=== PATIENT | female | born 1990 | race Caucasian/White ===

== ENCOUNTER 2019-07-02 11:11 | Outpatient (CLI) | payer MEDICAID, SELFPAY ==
--- NOTE | ~2019-07-02 | US_ITS ---
US breast LT limited 07/02/2019 12:02 Indication: Lump left axillary tail. Procedure: High-resolution ultrasound of the left axilla in the area of palpable concern Comparison: No prior studies for comparison. Findings: Small heterogeneous echotexture without focal solid or cystic mass. Impression: 1: Normal limited ultrasound of the left axilla. BI-RADS CATEGORY 1 - NEGATIVE Reviewed, dictated and finalized at location A. Impression: 1: Normal limited ultrasound of the left axilla. BI-RADS CATEGORY 1 - NEGATIVE
== END 2019-07-02 11:12 | disposition home or self-care (01) ==
LOC: ANHIMG 11:37
PROVIDERS: Visit Provider Obstetrics & Gynecology
DX: N63.32 Unspecified lump in axillary tail of the left breast (principal)
CPT/HCPCS: 76642

== ENCOUNTER 2019-09-21 10:57 | Outpatient (CLI) | payer OTHER, SELFPAY ==
[2019-09-21 12:45] LABS: Hematocrit 40.4 % (37.0-47.0); Hemoglobin 13.4 g/dL (12.0-15.0); Mean Corpuscular HGB Conc 33.2 g/dl (32-36); Mean Corpuscular Hemoglobin 30.6 pg (26-34); Mean Corpuscular Volume 92.2 fl (80-100); Mean Platelet Volume 10.3 fl (7.4-10.4); Platelet Count Result 239 k/mm3 (150-375); Red Blood Count 4.38 M/mm3 (4.2-5.4); Red Cell Distribution Width 16.3 % (11.5-14.5); White Blood Count 10.5 K/mm3 (4.5-10.0)
[2019-09-23 12:21] LABS: Rapid Plasma Reagin Non-Reactive (NonReactive)
== END 2019-09-21 10:58 | disposition home or self-care (01) ==
PROVIDERS: Visit Provider Obstetrics & Gynecology
DX: Z34.93 Encounter for supervision of normal pregnancy, unspecified, third trimester (principal); Z3A.00 Weeks of gestation of pregnancy not specified
CPT/HCPCS: 36415; 85027; 86592; 86850; 86900; 86901

== ENCOUNTER 2019-09-23 06:55 | Inpatient (IN) | payer OTHER, SELFPAY ==
--- NOTE | 2019-08-28 15:09 | PC.NURSE ---
VERIFIED WITH OR SCHEDULE AND PATIENT--C/S ON 09/23/19 AT 0900 PATIENT GIVEN REQUISITION FOR PRE-OP LAB DRAW ON 09/21/2019
[2019-09-23] VITALS (62 sets, daily range): BP systolic 102–134; BP diastolic 63–103; PULSE 58–122; RESP 12–18; TEMP 36.2–36.8; O2SAT 94–100; BMI 42.5
[2019-09-23] MEDS: LACTATED RINGERS 1,000 ML 999 ML IV CONT (07:35)
--- NOTE | 2019-09-23 07:44 | LDADM ---
This patient, Anette Saenz, was admitted to Labor/Delivery/Recovery 120 on 09/23/19 at 06:55. Plans for labor, pain management and were discussed with patient. Patient/family oriented to hospital policies and general routines including ID bracelet, bed and alarms, visiting hours, pain management, procedures, bathroom and other care routines, personal items, smoking policy, room service/diet and guest tray routines, infant security routines, and visiting hours. Patient/Family are encouraged to report perceived risks to care and to ask questions if they do not understand what they are told or what they should do. See OBIX for further documentation.
--- NOTE | 2019-09-23 08:11 | WPDANESEPPF ---
Anes - Initial Pre Proc Eval Procedure: Operation Date: 09/23/19 09:00 Proposed Procedures p Repeat Section - Margarito Hernandez MD Date/Time: 09/23/19 08:11 Surgeon: Margarito Hernandez MD Pre Op Diagnosis: Repeat C/S Patient Data Age: 29 Gender: F Height: 1.7 m Weight: 123 kg Last Vital Signs Pulse 85 09/23/19 08:01 BP 126/67 09/23/19 08:01 Allergies Allergy/AdvReac Type Severity Reaction Status Date / Time No Known Allergies Allergy Verified 08/28/19 14:52 Home Medications Medication Instructions Recorded Confirmed Type Humulin N NPH U-100 Insulin 15 units SUBMUCOSAL INJ HS 08/28/19 08/28/19 History glyburide 5 mg PO BID 08/28/19 08/28/19 History Patient hx anesthesia problems: none Family hx anesthesia problems: none PMFSH Past Medical History Medical History (Updated 09/23/19 @ 08:12 by Henrry Cope MD) Anxiety Bipolar 1 disorder Depression Diabetes in Surgical History Surgical History (Updated 09/23/19 @ 08:12 by Henrry Cope MD) Hx of section Family History Family History (Updated 08/28/19 @ 14:58 by Jatin Burroughs RN) Mother Hypertension Social History Social History Smoking status: Current every day smoker Tobacco type: cigarettes Substance use: never Spiritual care concerns: No Anes - Eval Final PreProcedure Day of Procedure 09/23/19 08:11 Patient weight: obese Heart: regular rate and rhythm Lungs: clear to auscultation and normal air movement Airway: Mallampati scale class II Neurological: alert and oriented Last oral intake: >/= 8 hours ASA classification: III Emergent: no Anesthetic plan: proceed Anesthesia type and monitoring: regional spinal Informed Consent: The patient's anesthetic plan and its attendant risks and benefits were discussed with the patient/family/POA. Questions were solicited and answers provided to the satisfaction of the patient/family/POA.
[2019-09-23] MEDS: LACTATED RINGERS 1,000 ML 125 ML IV CONT (08:19)
--- NOTE | 2019-09-23 08:54 | PM.IMHP ---
H&P: HPI History of Present Illness Date/Time: 09/23/19 08:54 Chief complaint: Repeat C/S Narrative: Anette Saenz is a 29 year old female , multiparous, who presents at 39 weeks gestation for repeat delivery. She had a previous delivery for failure to progress. She has no complaints. She is anxious. She denies any loss of fluid, vaginal bleeding, contractions. She denies any chest pain, shortness of breath. She denies any nausea, vomiting, fever, chills. Her for was complicated by gestational diabetes. She is a smoker. She has history of depression anxiety. Review of Systems Constitutional: Constitutional: Reports no additional constitutional complaints, Denies fatigue, Denies headache(s), Denies lethargy and Denies weakness Eyes: Eyes: Reports no additional eye complaints, Denies blurry vision and Denies photophobia ENT: Reports as per HPI, Denies headache(s) and Denies neck pain Cardiovascular: Cardiovascular: Denies chest pain, Denies diaphoresis, Denies leg edema, Denies palpitations and Denies dyspnea Respiratory: Respiratory: Denies hemoptysis, Denies dyspnea and Denies wheezing Gastrointestinal: Gastrointestinal: Denies abdominal pain, Denies melena, Denies bloating, Denies hematochezia, Denies nausea and Denies vomiting Genitourinary: Genitourinary: Reports no additional female genitourinary complaints Musculoskeletal: Musculoskeletal: Denies joint swelling, Denies neck pain, Denies numbness and Denies stiffness Neurologic: Denies Abnormal speech present, Denies confusion, Denies headache(s), Denies numbness and Denies weakness Psychiatric: Psychiatric: Denies anxiety, Denies confusion, Denies depression, Denies homicidal ideation and Denies suicidal ideation Endocrine: Endocrine: Denies fatigue and Denies palpitations Allergic/Immunologic: Allergic/Immunologic: Denies wheezing PMFSH Past Medical History Medical History (Updated 09/23/19 @ 08:12 by Henrry Cope MD) Anxiety Bipolar 1 disorder Depression Diabetes in Surgical History Surgical History (Updated 09/23/19 @ 08:12 by Henrry Cope MD) Hx of section Family History Family History (Updated 08/28/19 @ 14:58 by Jatin Burroughs RN) Mother Hypertension Social History Social History Smoking status: Current every day smoker Tobacco type: cigarettes Substance use: never Spiritual care concerns: No Meds Home Medications and Allergies Home Medications Medication Instructions Recorded Confirmed Type Humulin N NPH U-100 Insulin 15 units SUBMUCOSAL INJ HS 08/28/19 08/28/19 History glyburide 5 mg PO BID 08/28/19 08/28/19 History Allergies Allergy/AdvReac Type Severity Reaction Status Date / Time No Known Allergies Allergy Verified 08/28/19 14:52 Vital Signs Vital Signs - 24 hr 09/23/19 07:18 09/23/19 07:46 09/23/19 08:01 Pulse Rate 100 92 85 Blood Pressure 118/72 125/79 126/67 09/23/19 08:16 09/23/19 08:22 09/23/19 08:31 Pulse Rate 85 92 86 Blood Pressure 118/72 126/73 124/69 Exam Const: General: healthy appearing, comfortable and no acute distress; No confusion Orientation/consciousness: No confusion Eyes: Direct Ophthalmoscopy: No photophobia Resp: Auscultation: clear to auscultation bilaterally, no rales, no rhonchi and no wheezes Cardio: Rate: regular rate Heart sounds: no click, no murmurs and no rubs GI: Inspection: non-distended GI Palp: No abdominal tenderness Auscultation: normal bowel sounds Neuro: General: No confusion Speech: No Abnormal speech present Extrem: General: normal to inspection, no pedal edema and no calf tenderness Assessment and Plan Assessment and plan (1) Bipolar 1 disorder: Code(s): F31.9 - Bipolar disorder, unspecified Status: Acute (2) Anxiety: Code(s): F41.9 - Anxiety disorder, unspecified Status: Acute (3) Hx of section: Code(s): Z98
--- NOTE | 2019-09-23 09:57 | P.OP_ITS ---
Procedure Note - Detailed Date of procedure: 09/23/19 Pre-op diagnosis: Repeat C/S term gestation, previous LTCS Post-op diagnosis: same Procedure performed: Repeat low-transverse delivery Description of procedure: The patient was taken the operating room. She was prepped and draped in the dorsal supine position with leftward tilt after induction of spinal anesthetic. When anesthesia was found to be adequate a low- transverse skin incision was made and carried down to the level the fascia with the knife. The fascial incision was made at the midline with a scalpel. The fascial incision was extended laterally with Munson scissors. The fascia was tented upward superior and inferior with Radha clamps. The rectus muscles were dissected off bluntly. The rectus muscles at the midline. The p reperitoneal fat was dissected bluntly at the superior aspect of the separate the rectus muscles. The peritoneal cavity was entered bluntly in the same area. The peritoneal incision was extended superior and inferior with good position of bladder. Bladder blade was inserted. A low-transverse incision was made on the uterus with the scalpel. It was carried down the level of the amniotic cavity with a knife. The amniotic cavity bluntly. The uterine incision was made laterally with blunt traction. The infant was delivered. The cord was clamped and cut. The infant was handed off to waiting pediatric staff. Cord bloods were obtained. The placenta was removed manually. The uterus was exteriorized. Uterus cleared of all clots and debris. Uterus closed in 0 Vicryl in a running locked fashion. An imbricating layer of 0 Vicryl was also placed on the to bolster the closure. The uterus was returned to the abdomen. The gutters were cleared of all clots and debris. The fascia was closed 0 Vicryl in a running fashion. Subcutaneous tissue was irrigated and bleeding areas were cauterized. The skin was closed with subcuticular absorbable key. The incision was covered with derma donaldson. The patient tolerated the procedure well. She was taken recovery room stable condition. Sponge, lap, needle counts were correct x2. Anesthesia: spinal Surgeon: Margarito Hernandez MD Estimated blood loss (mL): 710 Drains: No Packing: No Pathology: none sent Complications: No immediate complications Condition: stable Disposition: floor Findings: Normal maternal anatomy. Average size infant with normal Apgars.
[2019-09-23] MEDS: OXYTOCIN 30 UNITS/NS 500 ML 30 UNITS/500 ML BAG 125 UNITS IV CONT (10:40)
--- NOTE | 2019-09-23 11:51 | PC.NURSE ---
Patient transferred to post room #292 per stretcher from labor and delivery. Support person present. Oriented to unit, room, information board, rooming in, admission packet and security measures. Patient verbalizes understanding.
[2019-09-23] MEDS: DEXTROSE 5%/0.45% SOD CHL 1,000 ML 125 ML IV CONT (15:13)
[2019-09-23] MEDS: KETOROLAC 30 MG/ML VIAL (*BKC) IV PUSH ×2 (15:24→20:59)
[2019-09-23] MEDS: SIMETHICONE 80 MG TAB.CHEW PO ×2 (18:59→22:38)
[2019-09-24] MEDS: KETOROLAC 30 MG/ML VIAL (*BKC) IV PUSH (04:59)
[2019-09-24 05:10] VITALS: BP 106/65; PULSE 84; RESP 18; TEMP 37
[2019-09-24 05:42] LABS: Basophils Absolute Auto 0.1 K/mm3 (0.0-0.1); Basophils Percent Auto 0.6 % (0.2-1.2); Eosinophils Absolute Auto 0.3 K/mm3 (0-0.3); Eosinophils Percent Auto 3.2 % (0-4.4); Hematocrit 33.7 % (37.0-47.0); Immature Granulocyte Absolute 0.05 K/mm3 (0.00-0.031); Immature Granulocyte Percent A 0.6 % (0-0.5); Lymphocytes Absolute Auto 1.79 K/mm3 (0.9-3.2); Lymphocytes Percent Auto 22.7 % (18.3-44.2); Mean Corpuscular HGB Conc 32.6 g/dl (32-36); Mean Corpuscular Hemoglobin 30.5 pg (26-34); Mean Corpuscular Volume 93.4 fl (80-100); Mean Platelet Volume 9.9 fl (7.4-10.4); Monocytes Absolute Auto 0.7 K/mm3 (0.1-0.6); Monocytes Percent Auto 9.3 % (2.6-8.5); Neutrophils Percent Auto 63.6 % (45.5-73.1); Platelet Count Result 179 k/mm3 (150-375); Red Blood Count 3.61 M/mm3 (4.2-5.4); White Blood Count 7.9 K/mm3 (4.5-10.0)
--- NOTE | 2019-09-24 07:54 | WPDANLDPN2 ---
Anes-Prog Note L&D Date/Time: 09/24/19 07:54 Comfortable throughout: section Neuraxial method: spinal Epidural/Spinal procedure site: clean & non-tender Neuro status: Neuro function grossly intact. Cardiovascular status: normal Respiratory status: normal Airway patency: baseline Mental status: baseline Post-Op hydration status: normal Vital Signs: Last Vital Signs Temp 37.0 C 09/24/19 05:10 Pulse 84 09/24/19 05:10 Resp 18 09/24/19 05:10 BP 106/65 09/24/19 05:10 Pulse Ox 100 09/23/19 23:15 I/O: Intake & Output 09/23/19 09/23/19 09/24/19 15:59 23:59 07:59 Intake Total 1000 250 300 Output Total 583 512 0624 Balance 5 -550 -1000 Post-procedural complaints: none Patient feedback: Patient satisfied with anesthetic care.
--- NOTE | 2019-09-24 07:55 | WPDANLDNPN2 ---
Anes-Prog Note L&D-Neuraxial Date/Time: 09/24/19 07:55 Neuraxial medications: intrathecal PF morphine Opiod-related complaints: none Patient feedback: Patient satisfied with post-operative pain management.
--- NOTE | 2019-09-24 08:23 | P.PNOB_ITS ---
OB - PN: Subj Subjective Date/time seen: 09/24/19 08:23 Patient comments: no complaints, pain well controlled, tolerating diet and flatus present OB - PN: Obj Data Labs CBC & Chem 7: 09/24/19 04:58 Labs: Laboratory Results - last 24 hr 09/24/19 04:58 WBC 7.9 RBC 3.61 L Hgb 11.0 L Hct 33.7 L MCV 93.4 MCH 30.5 MCHC 32.6 RDW 16.0 H Plt Count 179 MPV 9.9 Immature Gran % (Auto) 0.6 H Neut % (Auto) 63.6 Lymph % (Auto) 22.7 [place] % (Auto) 9.3 H Eos % (Auto) 3.2 Baso % (Auto) 0.6 Lymph # (Auto) 1.79 [place] # (Auto) 0.7 H Eos # (Auto) 0.3 Baso # (Auto) 0.1 Abs Immat Gran (auto) 0.05 H Absolute Neuts (auto) 5.0 Absolute Nucleated RBC 0.0 Nucleated RBC % 0.0 OB - PN A/P Plan day: 1 Comments: Post Op LTCS - no problems, routine recovery Time Spent With Patient Time: Total time spent is greater than 50% in coordination of care (as documented) at patient's floor/unit and/or counseling patient: Exam Const: General: cooperative, healthy appearing, comfortable and no acute distress Resp: Auscultation: no crackles, no rales, no rhonchi and no wheezes Cardio: Rhythm: regular rhythm Heart sounds: no click and no murmurs GI: Inspection: non-distended Auscultation: normal bowel sounds Extrem: General: normal to inspection, no pedal edema and no calf tenderness
[2019-09-24 08:55] VITALS: BP 124/72; PULSE 86; RESP 18; TEMP 36.3; O2SAT 100
[2019-09-24] MEDS: IBUPROFEN 600 MG TABLET PO ×2 (11:59→18:58)
[2019-09-24] MEDS: SIMETHICONE 80 MG TAB.CHEW PO (15:10)
[2019-09-24] MEDS: DOCUSATE SODIUM 100 MG CAPSULE PO (18:58)
[2019-09-24 19:01] VITALS: BP 104/70; PULSE 83; RESP 15; TEMP 36.8; O2SAT 100
--- NOTE | 2019-09-24 19:15 | PC.NURSE ---
PT was sleeping when this RN entered room. Did vitals on pt and asked if anything was needed. Pt stated nothing was needed at this time. Pt did state that she had missed the cutoff for dinner so if she wanted something to eat she would send her significant other out to get something.
[2019-09-25] MEDS: IBUPROFEN 600 MG TABLET PO (05:14)
[2019-09-25 07:35] VITALS: BP 122/76; PULSE 97; RESP 18; TEMP 36.2; O2SAT 100
--- NOTE | 2019-09-25 08:14 | PM.OBPNVD ---
OB - PN: Subj Subjective Date/time seen: 09/25/19 08:14 OB - PN: Obj Data Labs CBC & Chem 7: 09/24/19 04:58 OB - PN A/P Plan day: 2 Plan: routine care and discharge home Comments: Follow up in 1 week. Time Spent With Patient Time: Total time spent is greater than 50% in coordination of care (as documented) at patient's floor/unit and/or counseling patient: Review of Systems Review of Systems: All systems reviewed & are unremarkable except as noted in HPI and below Exam Narrative: Exam Narrative: Fundus firm and vaginal flow controlled. Negative homans. No redness, warmth, or tenderness of lower ext. Const: General: comfortable Resp: Effort & Inspection: normal respiratory effort Psych: Appearance: grossly normal Affect: normal affect Attitude: cooperative Judgement: Good judgement present (Psych)
[2019-09-25] MEDS: DOCUSATE SODIUM 100 MG CAPSULE PO (09:44)
[2019-09-27 10:55] VITALS: BP 121/83; PULSE 81; RESP 20; TEMP 36.9; O2SAT 100
--- NOTE | 2019-10-06 20:39 | PM.OBDSVD ---
DS: Admitting Diagnosis Admitting Diagnosis Admitting Diagnosis: Repeat C/S DS: Discharge Diagnosis Discharge Diagnosis (1) Hx of section: Code(s): Z98.891 - History of uterine scar from previous surgery Status: Acute (2) Bipolar 1 disorder: Code(s): F31.9 - Bipolar disorder, unspecified Status: Acute (3) Anxiety: Code(s): F41.9 - Anxiety disorder, unspecified Status: Acute (4) Diabetes in : Code(s): O24.919 - Unspecified diabetes mellitus in , unspecified trimester Status: Acute OB - DS: Summary OB Procedures : None OB Procedures Intrapartum: OB Procedures: : None Peripartum Data Procedures: Procedures Operation Date: 09/23/19 09:00 Actual Procedures Side Surgeon p Repeat Section Margarito Hernandez MD Time Spent with Patient Time attestation: Total time spent providing and/or coordinating discharge services: DS: Data Data Completed and Pending Completed studies during hospitalization: Pending at discharge 09/23/19 09:26 Surgical [PTH] Routine Discharge Plan Discharge Attending physician on discharge: Margarito Hernandez Consulting providers: Henrry Cope ; Cyndi Aleman Discharging Clinician: Cyndi Aleman Patient Disposition: Home, Self-Care Activity: pelvic rest Diet: as tolerated Discharge Instructions: Education: Mom and Baby Guide Given to: Patient Follow-Up: Call your delivering provider's office for an appointment to be seen in: 1 and 6 weeks Mom and baby should come to the [facility] for the follow-up appointment. Appointment Date/Time: Monday09/27/2019 at 11:00 am Call [phone] if you are unable to keep your appointment time. BREAST CARE: * Wear a snug supportive bra. * For engorgement discomfort: Bottle Feeding: * May apply ice packs ABDOMINAL INCISION: (if applicable) * Allow incision to air dry * Do NOT use lotions for powders on your incision * When showering, allow soap and water to run over the incision, but do not wash incision PERINEAL CARE: * Until bleeding stops, use your wicho bottle after urinating * Change your pad frequently throughout the day * Do NOT bathe in the water * No tub baths until seen by your physician - You may shower ACTIVITY: * Rest as much as possible. * Do not exercise or lift anything heavier than your baby (such as laundry or other children.) * Avoid stairs or driving as much as possible. * Do not put anything into the vagina. No douching, tampons, or sexual activity until seen by physician. NOTIFY PHYSICIAN IF YOU HAVE ANY QUESTIONS OR IF ANY OF THE FOLLOWING SYMPTOMS OCCUR: * If your episiotomy or incision becomes red, swollen, or more painful than what you have experienced in the hospital. * If your vaginal bleeding becomes foul smelling. * If your vaginal bleeding becomes more heavy than a period or if your bleeding changes from pink to bright red. However, you may pass an occasional walnut-sized clot once or twice for the first week . * If you experience a sharp, shooting pain in you calves. * If you discover a hard, reddened area on your breast or if you experience flu-like symptoms. DIET: * Eat regular, well-balanced meals. * Drink plenty of fluids daily. If , drink to thirst. Follow-up/Referrals: Margarito Hernandez MD [Physician] - Discharge Medications: New ibuprofen 600 mg Tablet 600 mg PO Q6H PRN (Reason: Cramping) Qty: 20 RF: 0 hydrocodone-acetaminophen 5-325 mg Tablet 1 tab PO Q3H PRN (Reason: Moderate Pain (4-6)) Qty: 10 RF: 0 Continued Valtrex 500 mg BYMOUTH DAILY RF: 0 Discontinued glyburide 5 mg Tablet 5 mg PO BID RF: 0 Humulin N NPH U-100 Insulin 15 units Submucosal Inj HS RF: 0 Date of admission: 09/23/19 06:55 Primary Care Provider: PHYSICIAN,MOLD FINISHER
== END 2019-09-25 11:34 | disposition home or self-care (01) | DRG 540 ==
LOC: ANHLDR 07:01 → ANHOB2 11:59
PROVIDERS: Admitting Provider Obstetrics & Gynecology; Visit Provider Obstetrics & Gynecology
PROC: 10D00Z1 Extraction of Products of Conception, Low, Open Approach (ICD-10-PCS; CPT 59514; principal; 2019-09-23 09:00)
DX: O34.211 Maternal care for low transverse scar from previous cesarean delivery (principal); Z37.0 Single live birth; Z3A.39 39 weeks gestation of pregnancy; O99.214 Obesity complicating childbirth; E66.9 Obesity, unspecified; O99.344 Other mental disorders complicating childbirth; F31.9 Bipolar disorder, unspecified; F41.9 Anxiety disorder, unspecified; O99.334 Smoking (tobacco) complicating childbirth; F17.210 Nicotine dependence, cigarettes, uncomplicated; O24.429 Gestational diabetes mellitus in childbirth, unspecified control
CPT/HCPCS: 36415; 85025; 88307; A9270; J0131; J1170; J1200; J1885; J2274; J2405; J2590; J3010; J7120

== ENCOUNTER → 2020-06-08 08:51 | Outpatient (CLI) | payer BC, SELFPAY ==
--- NOTE | ~2020-06-08 | MMUS_ITS ---
EXAMINATION: MM diagnostic radha BI w grabiel, US breast LT limited HISTORY: Palpable left breast/axillary lump. TECHNIQUE: Additional 3-D tomosynthesis images of the breasts were performed and synthetic 2-D images were generated. CAD analysis was submitted and interpreted. High resolution Limited left breast ultr asound was performed. COMPARISON: Ultrasound dated 07/02/2019 BREAST PARENCHYMAL COMPOSITION: Breast composed of scattered areas of fibroglandular density. FINDINGS: MAMMOGRAPHIC FINDINGS: There are no suspicious masses, calcifications or architectural distortion in either breast to sugges t malignancy. There are benign-appearing symmetric bilateral axillary lymph nodes with normal fatty h ilum. ULTRASOUND: Limited left breast/axillary ultrasound in the area of palpable concern: Normal heterogeneous echotex ture without focal solid or cystic mass. IMPRESSION: 1. No evidence for malignancy in either breast. 2. Recommend follow-up clinical management for palpable breast abnormality. BI-RADS Category 1: Negative Reviewed, dictated and finalized at location A. IMPRESSION: 1. No evidence for malignancy in either breast. 2. Recommend follow-up clinical management for palpable breast abnormality. BI-RADS Category 1: Negative
== END ==
PROVIDERS: Visit Provider Nurse Practitioner Women's Health
DX: N63.32 Unspecified lump in axillary tail of the left breast (principal); N64.4 Mastodynia
CPT/HCPCS: 76642; 77062; 77066; G0279

== ENCOUNTER 2020-10-26 07:27 | Emergency (ER) | payer BC, SELFPAY ==
--- NOTE | ~2020-10-26 | XR_ITS ---
EXAMINATION: XR lumbar spine 2-3V EXAM DATE: 10/26/2020 07:51 INDICATION: Back pain, numbness down both legs. TECHNIQUE: Lumber spine frontal, lateral, lateral L5-S1 projections for interpretation. There is no prior study for comparison. FINDINGS: Moderate loss of the L4-5 and L5-S1 disc height. The vertebral body and disc heights are o therwise well maintained. The vertebral bodies are aligned in the AP dimension. There are no acute fractures identified. There is mild lumbar facet arthropathy. Paraspinal soft tissue is unremarkable . IMPRESSION: Moderate lower lumbar disc disease. Mild facet arthropathy. Reviewed, dictated and finalized at location B.
[2020-10-26 07:32] VITALS: BP 140/86; PULSE 64; RESP 16; TEMP 36.3; O2SAT 99
--- NOTE | 2020-10-26 07:43 | ED.BACK ---
HPI - Back Pain/Injury General Chief Complaint: Back Pain/Injury Stated Complaint: Back Pain Time Seen by Provider: 10/26/20 07:31 History of Present Illness HPI Narrative: Patient is a 30-year-old female who presents ER with low back pain. Ongoing for the last 3 days. Worsened after going hiking and camping. She took 800 mg ibuprofen x1 yesterday without relief of pain. Feels like pain is increasing today. Worse with walking and bending over. No focal numbness or weakness. Denies loss of bladder/bowel function. No new fevers or chills. No new rash. Related Data Home Medications Medication Instructions Recorded Confirmed Valtrex 500 mg BYMOUTH DAILY 09/23/19 09/23/19 Allergies Allergy/AdvReac Type Severity Reaction Status Date / Time No Known Allergies Allergy Verified 08/28/19 14:52 Review of Systems Review of Systems: All systems reviewed & are unremarkable except as noted in HPI and below Constitutional: Constitutional: Denies chills, Denies fever(s) and Denies weakness Gastrointestinal: Gastrointestinal: Denies abdominal pain, Denies nausea and Denies vomiting Musculoskeletal: Musculoskeletal: Reports back pain, Denies arthralgias, Denies joint swelling and Reports muscle cramps Neurologic: Denies headache(s), Denies focal weakness and Denies numbness PMFSH Past Medical History Medical History (Updated 10/26/20 @ 09:32 by Erik George MD) Anxiety Bipolar 1 disorder Depression Diabetes in Surgical History Surgical History (Updated 09/23/19 @ 08:12 by Henrry Cope MD) Hx of section Family History Family History (Updated 08/28/19 @ 14:58 by Jatin Burroughs RN) Mother Hypertension Social History Social History Smoking status: Current every day smoker Tobacco type: cigarettes Substance use: never Spiritual care concerns: No Exam Narrative: GENERAL: Well-appearing, well-nourished, and in no acute distress. HEAD: Normocephalic, atraumatic. CHEST: Clear to auscultation. No respiratory distress. HEART: Regular rate and rhythm. Normal peripheral pulses. ABDOMEN: Soft, nontender, nondistended. Back: Mild midline tenderness at L4. No additional midline tenderness to thoracic or L-spine. Bilateral paraspinal muscular tenderness in lower lumbar region. EXTREMITIES: Normal range of motion. 5/5 strength bilateral lower extremities. No lower extremity edema. SKIN: Warm, dry, no rash. Linear superficial burn right axilla without infection and superficial scabbing occurring. No longer than 2 cm. NEURO: Alert and oriented x3. PSYCH: Normal mood and affect. Course Course Emergency Course: Back pain improving with Toradol and Valium discussed imaging findings. Discussed treatment plan. Discharge home. Vital Signs Vital signs: Vital Signs Temperature 97.4 F L 10/26/20 07:32 Pulse Rate 64 10/26/20 07:32 Respiratory Rate 16 10/26/20 07:32 Blood Pressure 140/86 10/26/20 07:32 Pulse Oximetry 99 10/26/20 07:32 Temperature 97.4 F L 10/26/20 07:32 Pulse Rate 64 10/26/20 07:32 Respiratory Rate 16 10/26/20 07:32 Blood Pressure 140/86 10/26/20 07:32 Pulse Oximetry 99 10/26/20 07:32 MDM - Back Pain/Injury Imaging Data Radiologist's impression: ITS Impressions Lumbar Spine X-Ray 10/26/20 08:40 IMPRESSION: Moderate lower lumbar disc disease. Mild facet arthropathy. Discharge Plan Discharge Clinical Impression: Lumbar paraspinal muscle spasm Patient Disposition: Home, Self-Care Condition: Stable Instructions: Muscle Spasm (ED) Additional Instructions: Return to the ER if you have increased pain in your back, you develop lower extremity weakness/numbness/paralysis, you have numbness or tingling in your private parts, or you are unable to control your ability to urinate/stool. Prescriptions: New cyclobenzaprine 10 mg tablet 10 mg PO TID PRN (Reason: muscle spasm) Qty: 20 RF:
[2020-10-26] MEDS: KETOROLAC (*BKC) 60 MG/2 ML VIAL IM (08:08)
[2020-10-26] MEDS: diazePAM (*CRX) 2 MG TABLET PO (08:08)
[2020-10-26 09:43] VITALS: BP 109/79; PULSE 72; RESP 14; O2SAT 99
== END 2020-10-26 09:44 | disposition home or self-care (01) ==
PROVIDERS: Emergency Provider Emergency Medicine; PCP Nurse Practitioner Family
DX: M62.830 Muscle spasm of back (principal); F17.210 Nicotine dependence, cigarettes, uncomplicated; M51.9 Unspecified thoracic, thoracolumbar and lumbosacral intervertebral disc disorder
CPT/HCPCS: 72100; 96372; 99283; A9270; J1885

== ENCOUNTER 2022-07-19 07:49 | Emergency (ER) | payer OTHER, SELFPAY ==
[2022-07-19] VITALS (15 sets, daily range): BP systolic 117–149; BP diastolic 82–92; PULSE 66–111; RESP 10–22; TEMP 36.2; O2SAT 97–100
--- NOTE | 2022-07-19 07:53 | ECG_ITS ---
Measurements Intervals [place] Rate: 99 P: 23 [place]: 153 QRS: 59 QRSD: 98 T: 29 QT: 351 QTc: 452 Interpretive Statements SINUS RHYTHM NO PREVIOUS ECG AVAILABLE FOR COMPARISON Electronically Signed On 07-19-2022 14:57:07 CDT by Davey Estrada M.D.
[2022-07-19 08:37] LABS: Basophils Absolute Auto 0.1 K/mm3 (0.0-0.1); Basophils Percent Auto 0.7 % (0.2-1.2); Eosinophils Absolute Auto 0.4 K/mm3 (0-0.3); Eosinophils Percent Auto 5.1 % (0-4.4); Hematocrit 45.8 % (37.0-47.0); Hemoglobin 15.7 g/dL (12.0-15.0); Immature Granulocyte Absolute 0.04 K/mm3 (0.00-0.031); Immature Granulocyte Percent A 0.6 % (0-0.5); Lymphocytes Absolute Auto 1.65 K/mm3 (0.9-3.2); Lymphocytes Percent Auto 23.9 % (18.3-44.2); Mean Corpuscular HGB Conc 34.3 g/dl (32-36); Mean Corpuscular Hemoglobin 30.6 pg (26-34); Mean Corpuscular Volume 89.3 fl (80-100); Mean Platelet Volume 9.2 fl (7.4-10.4); Monocytes Absolute Auto 0.4 K/mm3 (0.1-0.6); Monocytes Percent Auto 6.4 % (2.6-8.5); Neutrophils Absolute Auto 4.4 K/mm3 (1.3-6.7); Neutrophils Percent Auto 63.3 % (45.5-73.1); Platelet Count Result 217 k/mm3 (150-375); Red Blood Count 5.13 M/mm3 (4.2-5.4); Red Cell Distribution Width 13.2 % (11.5-14.5); White Blood Count 6.9 K/mm3 (4.5-10.0)
[2022-07-19 08:51] LABS: Alanine Aminotransferase 23 U/L (6-35); Albumin Level 4.3 g/dL (3.5-5.1); Alkaline Phosphatase 51 U/L (38-126); Anion Gap 8 mmol/L (8-16); Aspartate Amino Transferase 25 U/L (14-36); Bilirubin,Total 0.4 mg/dL (0.2-1.3); Blood Urea Nitrogen 15 mg/dL (7-17); Calcium 8.6 mg/dL (8.4-10.2); Carbon Dioxide 24 mmol/L (22-30); Chloride 106 mmol/L (98-107); Estimated CRCL calculation 153 ml/min; Estimated Glomerular Filt Rate > 60; Glucose 105 mg/dL (65-110); Sodium 138 mmol/L (137-145)
[2022-07-19 09:03] LABS: Troponin I < 0.012 ng/mL (0.000-0.034)
--- NOTE | 2022-07-19 09:58 | ED.ARRPALP ---
HPI - Arrhythmia/Palpitations General Chief Complaint: Arrhythmia/Palpitations Stated Complaint: palpitations since last night Time Seen by Provider: 07/19/22 07:54 History of Present Illness HPI narrative: Patient with h/o anxiety, depression, p/w palpitations. She has been feeling them on and off for a week, she has been off of her antidepressants due to insurance issues for a month; no severe chest pain, shortness of breath, does not feel well Related Data Home Medications Medication Instructions Recorded Confirmed Valtrex 500 mg BYMOUTH DAILY 09/23/19 09/23/19 Allergies Allergy/AdvReac Type Severity Reaction Status Date / Time No Known Allergies Allergy Verified 08/28/19 14:52 [facility] Past Medical History Medical History (Updated 07/19/22 @ 09:59 by Halley Mclaughlin MD) Anxiety Bipolar 1 disorder Depression Diabetes in Surgical History Surgical History (Updated 09/23/19 @ 08:12 by Henrry Cope MD) Hx of section Family History Family History (Updated 08/28/19 @ 14:58 by Jatin Burroughs RN) Mother Hypertension Social History Social History Smoking status: Current every day smoker Tobacco type: cigarettes Substance use: never Spiritual care concerns: No Exam Narrative: EXAMINATION OF ORGAN SYSTEMS/BODY AREAS: Constitutional: Vital signs per nursing GENERAL:[No acute distress, non-toxic appearing.] HEAD: Normal with no signs of head trauma. EYES: EOMI, conjunctiva normal ENT: Hearing grossly intact LUNGS: Nonlabored breathing. HEART: [Regular rate and rhythm] ABD: [Soft], [nontender to palpation] EXT: Normal range of motion; no lower extremity swelling or pain SKIN: [No rashes or lesions.] NEURO: [Alert and oriented x 3. No gross focal sensory or strength deficits.] PSYCH: Anxious Course Vital Signs Vital signs: Vital Signs Temperature 97.2 F L 07/19/22 07:59 Pulse Rate 111 H 07/19/22 07:59 Respiratory Rate 20 07/19/22 07:59 Blood Pressure 149/92 H 07/19/22 07:59 Pulse Oximetry 100 07/19/22 07:59 Oxygen Delivery Room Air 07/19/22 07:59 Temperature 97.2 F L 07/19/22 07:59 Pulse Rate 77 07/19/22 10:15 Respiratory Rate 19 07/19/22 10:15 Blood Pressure 117/82 07/19/22 08:31 Pulse Oximetry 100 07/19/22 10:15 Oxygen Delivery Room Air 07/19/22 08:46 MDM - Arrhythmia/Palpitations MDM Narrative Medical decision making narrative: Patient with history of anxiety/panic attacks presenting here with symptoms consistent with anxiety. On exam patient is [initially tachycardic and anxious]. I will obtain EKG to rule out arrhythmia/ischemia or other cause of palpitations. EKG - 12-Lead: Performed at 0757. Interpreted by me. [Sinus rhythm]. Rate 99. [Normal] axis. IN-interval [normal]. QRS duration [normal]. QTc [normal]. [No ST segment elevation or depression]. [T-wave normal]. Impression: No EKG evidence of acute ischemia or dysrhythmia. Labs including TSH within acceptable limits. On reevaluation patient is feeling better, resting comfortably, vital signs now stable. I do feel patient is stable for discharge home at this time with followup to their doctor, and return here if symptoms return or worsen. Agreeable to outpatient management. Lab Data 07/19/22 08:29 07/19/22 08:29 Labs: Lab Results 07/19/22 07/19/22 Range/Units 08:29 08:30 WBC 6.9 (4.5-10.0) K/mm3 RBC 5.13 (4.2-5.4) M/mm3 Hgb 15.7 H D (12.0-15.0) g/dL Hct 45.8 (37.0-47.0) % MCV 89.3 (80-100) fl MCH 30.6 (26-34) pg MCHC 34.3 (32-36) g/dl RDW 13.2 (11.5-14.5) % Plt Count 217 (150-375) k/mm3 MPV 9.2 (7.4-10.4) fl Immature Gran % (Auto) 0.6 H (0-0.5) % Neut % (Auto) 63.3 (45.5-73.1) % Lymph % (Auto) 23.9 (18.3-44.2) % [place] % (Auto) 6.4 (2.6-8.5) % Eos % (Auto) 5.1 H (0-4.4) % Baso % (Auto) 0.7 (0.2-1.2) % Lymph # (Auto) 1.65 (0.9-3.2) K/m
== END 2022-07-19 10:29 | disposition home or self-care (01) ==
PROVIDERS: Emergency Provider Emergency Medicine; PCP Nurse Practitioner Family
DX: R00.2 Palpitations (principal); F41.9 Anxiety disorder, unspecified; T43.206A Underdosing of unspecified antidepressants, initial encounter; Z91.138 Patient's unintentional underdosing of medication regimen for other reason; F31.9 Bipolar disorder, unspecified; F17.210 Nicotine dependence, cigarettes, uncomplicated
CPT/HCPCS: 36415; 80053; 84443; 84484; 85025; 93005; 99284